=== PATIENT | male | born 1965 | race Caucasian/White ===

== ENCOUNTER 2017-02-15 12:40 | Observation (INO) | payer BC, OTHER ==
--- NOTE | ~2017-02-15 | HP ---
History And Physical [facility] [id number] [place]. [address] NAME: JUAN PETTIT : 61 STATUS : ADM Daniela PAT#: [id number] AGE: 52 ADM/REG DATE : 02/15/17 MR#: [id number] REPORT SERV DATE: 02/15/17 DICTATED BY: HEIDY PODN DATE: 02/15/17 REPORT STATUS : Draft TRANSCRIBED BY: TIEN DATE: 02/15/17 DATE OF ADMISSION: 02/15/2017 CHIEF COMPLAINT: Dyspnea, dull pain, and chest pain. HISTORY OF PRESENT ILLNESS: This is a very pleasant 52-year-old male with a history of anteroseptal AL in 2008, status post stent who states an approximately one-month history of noticing more shortness of breath. This is particularly noted at the end of his work shift. 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 This has been happening intermittently over the last month. Last night, he was off work at home when he had onset of jaw pain at rest around p.m. and a sensation of "pressure" across his chest. When he laid down, he felt "smothering." So, he took an aspirin and two Xanax and actually fell asleep. When he got up this morning, he was actually feeling fine, but then, the chest pain and jaw pain recurred along with shortness of breath. He drove himself to the emergency department and states one sublingual nitroglycerin seemed to ease the chest pain. Currently, the chest pain is a 4/10 along with some jaw pain. The patient has not been seen by a merchandise complaint adjuster in several years. He states a cardiac catheterization at [facility] within the last few years with no intervention. He denies any orthopnea or lower extremity edema. He had no shift in his weight. Denies recent fever, cough, or chills. He is currently being treated with methadone by his primary care physician for a history of opiate addiction. He is tapering this dose. He does state he is prone to anxiety and panic attacks. PAST MEDICAL HISTORY: 1. Coronary artery disease, status post anteroseptal AL on 03/01/2009. Suspect had LAD stent at that time. 2. Hypertension. 3. Mixed hyperlipidemia. 4. Anxiety. 5. On methadone for a history of opiate addiction. 6. BPH. PAST SURGICAL HISTORY: 1. Bilateral knee arthroscopy, twice on the right side. 2. Umbilical hernia repair. 3. Basal cell carcinoma removed around the right eye and scalp. HOME MEDICATIONS: 1. Tylenol 8-hour ER 650, 1300 mg daily p.r.n. 2. Xanax 1 mg at bedtime p.r.n. sleep. 3. Aspirin 81 daily. 4. Coreg 6.25 b.i.d. 5. Methadone 10 mg b.i.d. p.r.n. withdrawal symptoms or diarrhea. 6. Crestor 20 mg at bedtime. 7. Ambien 10 mg at bedtime p.r.n. sleep. History And Physical [address] [address] NAME: JUAN PETTIT : 61 STATUS : ADM Daniela PAT#: [id number] AGE: 52 ADM/REG DATE : 02/15/17 MR#: [id number] REPORT SERV DATE: 02/15/17 DICTATED BY: HEIDY POND DATE: 02/15/17 REPORT STATUS : Draft TRANSCRIBED BY: TIEN DATE: 02/15/17 ALLERGIES: OPIATES STATED AN ALLERGY GIVEN HISTORY OF ADDICTIONS PER THE PATIENT. SOCIAL HISTORY: The patient is and lives with his and two daughters. He smokes four to five cigarettes per day and has been doing so for five years. Denies alcohol use. 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 FAMILY HISTORY: Father of an AL at age 72. Mother of an AL at age 58. REVIEW OF SYSTEMS: Negative except as indicated above. PHYSICAL EXAMINATION: VITAL SIGNS: Blood pressure 130/85, heart rate 46, temperature 96.3, and pulse oximetry 96% room air. BMI 22.2. GENERAL: Well developed, well nourished, in no acute distress HEENT: Anicteric. Normal EOM. Head normocephalic. PERRLA, no xanthelasma. NECK: Supple. No JVD. Carotids normal without bruits. LUNGS: Clear to auscultation bilaterally anterior and posterior. Respirations even and unlabored. CARDIAC: S1, S2 regular rate and rhythm. No murmurs, rubs, or gallops. No chest wall tenderness. ABDOMEN: Normal bowel sounds. Soft and nontender to palpation. No masses or organomegaly. EXTREMITIES: No peripheral edema. DP/PT and radial pulses palpable bilaterally. No clubbing or cyanosis. SKIN: Warm and dry. Normal turgor. No pallor or cyanosis. MUSCULOSKELETAL: Moving all extremities x4. Normal muscle strength. NEURO/PSYCH: Alert and oriented with appropriate affect. LABORATORY DATA: White blood count 10.5, hemoglobin 15.3, and hematocrit 42.5. Sodium 142, potassium 3.5, BUN 11, and creatinine 0.7. Troponin less than 0.02. Chest x-ray shows tortuous aorta but no acute cardiopulmonary processes. EKGs interpreted by myself indicate sinus bradycardia with anteroseptal Q-waves and some nonspecific T-waves to V4 and V5. ASSESSMENT AND PLAN: 1. Chest pain, jaw pain, and shortness of breath concerning in this 52-year-old male with a history of coronary artery disease and stenting in 2008 to the left anterior descending coronary artery. The patient is currently having 4/10 chest pain which was eased with sublingual nitroglycerin given by the nurse at bedside. EKG is nonspecific and troponins have been negative. We will plan to check a D-dimer and a second troponin in approximately one hour. If troponin unchanged, we will plan to send the patient for a nuclear stress test in the morning. Continue administration of nitroglycerin throughout the night as this does seem to give the patient some relief. Tylenol also ordered for headache accompanying nitroglycerin. 2. Coronary artery disease with a history of anteroseptal myocardial infarction and stents likely to the left anterior descending coronary artery in 2008. The patient is on aspirin, Coreg, and high-intensity statin. We will continue. History And Physical [address] [address] NAME: JUAN PETTIT : 61 STATUS : ADM Daniela PAT#: [id number] AGE: 52 ADM/REG DATE : 02/15/17 MR#: [id number] REPORT SERV DATE: 02/15/17 DICTATED BY: HEIDY POND DATE: 02/15/17 REPORT STATUS : Draft TRANSCRIBED BY: TIEN DATE: 02/15/17 3. Hypertension. Appears controlled. Continue home medications. 4. Mixed hyperlipidemia. On Crestor 20 mg at bedtime. We will continue. 5. Tobacco, although used in small doses. I have encouraged complete cessation. DBT/MODL Heidy Pond NP / [id number] CC: Roxanna Hernandez, MSN, CUT OUT PRESS OPERATOR-BC MIROSLAVA REYNA
[2017-02-15 11:16] LABS: BASOPHILS 0.3 %; BASOPHILS ABSOLUTE 0.03 10/3/uL (0.0-0.16); EOSINOPHILS 2.4 %; EOSINOPHILS ABSOLUTE 0.25 10/3/uL (0.0-0.53); HEMATOCRIT 42.5 % (40.0-51.0); HEMOGLOBIN 15.3 g/dL (13.6-17.8); IMMATURE GRANULOCYTES 0.2 %; IMMATURE GRANULOCYTES ABSOLUTE 0.02 10/3/uL (0.0-0.11); LYMPHOCYTES 35.1 %; LYMPHOCYTES ABSOLUTE 3.69 10/3/uL (0.67-4.30); MANUAL DIFF NO %; MEAN CORPUSCULAR HEMOGLOB 33.1 pg (26.0-34.0); MEAN PLATELET VOLUME 9.5 fL (9.2-13.0); MONOCYTES 9.8 %; MONOCYTES ABSOLUTE 1.03 10/3/uL (0.21-1.20); NEUTROPHILS 52.2 %; NEUTROPHILS ABSOLUTE 5.48 10/3/uL (2.02-8.40); PLATELET COUNT 239 10/3/uL (150-400); RBC DISTRIBUTION WIDTH 12.8 % (12.0-16.0); RED CELL COUNT 4.62 10/6/uL (4.7-6.1); WHITE BLOOD CELLS 10.5 10/3/uL (4.5-10.5)
[2017-02-15 11:23] LABS: PROTIME (NOT ORD) 13.5 SEC (12.0-14.5)
[2017-02-15 11:24] LABS: PARTIAL THROMBO TIME 34.1 SEC (22.5-37.2)
[2017-02-15 11:33] LABS: BUN (BLOOD UREA NITROGEN) 11 MG/DL (6-23); CALCIUM, SERUM 8.6 MG/DL (8.5-10.4); CHEST PAIN PROFILE TAT 0 Hrs 21 Mins; CHLORIDE, SERUM 107 MMOL/L (96-112); CO2 (CARBON DIOXIDE) 27 MMOL/L (24-34); CREATININE 0.74 MG/DL (0.70-1.30); GFR AFRICAN AMERICAN 121 ML/MIN (>=60); GFR NON AFRICAN AMERICAN 105 ML/MIN (>=60); GLUCOSE, SERUM 103 MG/DL (60-99); POTASSIUM, SERUM 3.5 MMOL/L (3.5-5.3); SODIUM, SERUM 142 MMOL/L (135-148); TROPONIN I <0.02 NG/ML (<0.05)
[~2017-02-15 12:40] MED LIST: 8 HOUR650 MG PO; AMB10 PO; ASAB PO; COREG6 PO; CRESTOR20 MG PO; DOLOPHINE10 MG PO; XANAX1 MG PO
[2017-02-15 16:16] LABS: D-DIMER QUANTITATIVE 0.46 ug/mLFEU (< 0.50)
[2017-02-16] MEDS ORDERED: NITROQUICK0.4 MG (11:15)
== END 2017-02-16 11:30 | disposition home or self-care (01) ==
LOC: ER 12:40 → CDU1 13:04
PROVIDERS: Emergency Medicine
DX: R07.9 Chest pain, unspecified (principal); R68.84 Jaw pain; I25.10 Atherosclerotic heart disease of native coronary artery without angina pectoris; I10 Essential (primary) hypertension; I25.2 Old myocardial infarction; E78.2 Mixed hyperlipidemia; F41.9 Anxiety disorder, unspecified; F17.200 Nicotine dependence, unspecified, uncomplicated; N40.0 Benign prostatic hyperplasia without lower urinary tract symptoms; Z88.5 Allergy status to narcotic agent; Z79.82 Long term (current) use of aspirin; Z79.899 Other long term (current) drug therapy; Z98.890 Other specified postprocedural states
CPT/HCPCS: 71010; 78452; 80048; 82962; 83735; 84484; 85025; 85379; 85610; 85730; 93005; 93017; 99285; A9270-GY; A9502; G0378